=== PATIENT | male | born 1945 | race Caucasian/White ===

== ENCOUNTER 2018-05-05 14:30 | Emergency (ER) | payer OTHER ==
[~2018-05-05] VITALS: Ht 167.6 cm; Wt 85.2 kg
[2018-05-05 14:38] VITALS: BP 0/0
[2018-05-05] MEDS ORDERED: MOTRIN800 MG PO (17:02)
== END 2018-05-05 17:15 | disposition home or self-care (01) ==
LOC: EME 14:30
DX: S93.401A Sprain of unspecified ligament of right ankle, initial encounter (principal); M79.671 Pain in right foot; S90.01XA Contusion of right ankle, initial encounter; W01.0XXA Fall on same level from slipping, tripping and stumbling without subsequent striking against object, initial encounter; Z79.82 Long term (current) use of aspirin
CPT/HCPCS: 73610; 99281; 99283